=== PATIENT | male | born 1970 | race African-American/Black ===

== ENCOUNTER 2019-10-12 23:18 | Emergency (ER) | payer SELFPAY ==
[~2019-10-12] VITALS: Ht 170.2 cm; Wt 97.7 kg
[2019-10-13 00:21] LABS: HEMATOCRIT 34.4 % (39.0-50.0); HEMOGLOBIN 11.6 g/dl (14.0-18.0); IMMATURE GRANULOCYTES 0.6 % (0.0-5.0); MEAN CELL VOLUME 90.8 fL CALC (80.0-100.0); MEAN CORPUSCULAR HGB 30.6 pG CALC (26.0-32.0); MEAN CORPUSCULAR HGB CONC 33.7 g/dL CAL (32.0-36.0); NEUT# 5.48 thou/uL (1.82-7.42); RED BLOOD COUNT 3.79 mill/uL (4.70-6.10); RED CELL DISTRI WIDTH 12.5 % (11.5-15.5)
[2019-10-13 00:32] LABS: ALBUMIN 3.8 g/dL (3.2-5.0); ALKALINE PHOSPHATASE 83 u/l (38-126); ANION GAP 12 (6-22 (CALC)); BILIRUBIN, TOTAL 0.6 mg/dL (0.0-1.4); BUN 20 mg/dL (9-20); BUN/CREATININE RATIO 15 (12-20 (CALC)); CARBON DIOXIDE 25 mmol/l (22-30); CHLORIDE 99 mmol/l (95-108); CREATININE 1.4 mg/dL (0.7-1.3); GFR 54 ML/MIN (>=60 (CALC)); GFR FOR AFR.AMER. > 60 ML/MIN (>=60 (CALC)); POTASSIUM 3.7 mmol/l (3.5-5.1); SGOT/AST 29 u/l (17-59); SODIUM 133 mmol/l (137-146); TOTAL PROTEIN 7.8 g/dL (6.3-8.2)
[2019-10-13 01:40] VITALS: BP 146/82
[2019-10-13] MEDS ORDERED: AMLODIPINE BESY10 MG PO (01:57)
--- NOTE | 2019-10-15 17:36 | NUR ---
Notified patient of + Covid results. Patient denies fever or dyspnea. Advised patient to quarantine until the [facility] contacts him with instructions. Advised patient to retuen to ED with difficulty breathing or other urgent needs. Patient verbalized understanding.
== END 2019-10-13 01:40 | disposition home or self-care (01) | DRG 179 ==
LOC: ED 23:18
PROVIDERS: Family Medicine
DX: U07.1 COVID-19 (principal); E11.9 Type 2 diabetes mellitus without complications; I10 Essential (primary) hypertension

== ENCOUNTER 2020-06-15 08:52 | Emergency (ER) | payer BC ==
[~2020-06-15] VITALS: Ht 170.2 cm; Wt 100.0 kg
[~2020-06-15 08:52] MED LIST: AMLODIPINE BESY10 MG PO
[2020-06-15] MEDS ORDERED: FLOXIN OTIC0.3 % AS (10:03)
[2020-06-15] MEDS ORDERED: AMOX/K CLAV875 M1 PO (10:03)
[2020-06-15] MEDS ORDERED: MED FOR DIABETES (10:08)
[2020-06-15 10:20] VITALS: BP 143/81
== END 2020-06-15 10:20 | disposition home or self-care (01) | DRG 153 ==
LOC: ED 08:52
DX: H66.92 Otitis media, unspecified, left ear (principal); H60.92 Unspecified otitis externa, left ear; I10 Essential (primary) hypertension; E11.9 Type 2 diabetes mellitus without complications

== ENCOUNTER 2022-12-01 02:10 | Emergency (ER) | payer SELFPAY ==
[~2022-12-01] VITALS: Ht 170.2 cm; Wt 99.7 kg
[2022-12-01] VITALS (10 sets, daily range): BP systolic 178–234; BP diastolic 84–120
[~2022-12-01 02:10] MED LIST changes: +AMOX/K CLAV875 M1 PO; +FLOXIN OTIC0.3 % AS; +MED FOR DIABETES; +METFORMIN500 M1 OR; +ULTRAM50 MG OR
[2022-12-01 03:02] LABS: BASO% 0.4 % (0-3); EOS% 3.7 % (0-8); IMMATURE GRANULOCYTES 0.1 % (0.0-5.0); LYMPH% 16.5 % (15-41); MEAN CELL VOLUME 94.8 fL CALC (80.0-100.0); MEAN CORPUSCULAR HGB 30.6 pG CALC (26.0-32.0); MEAN CORPUSCULAR HGB CONC 32.2 g/dL CAL (32.0-36.0); MONO% 6.9 % (2-13); NEUT# 6.74 thou/uL (1.82-7.42); NEUT% 72.4 % (42-76); RED BLOOD COUNT 2.88 mill/uL (4.70-6.10); RED CELL DISTRI WIDTH 12.6 % (11.5-15.5)
[2022-12-01 03:09] LABS: HEMATOCRIT 27.3 % (39.0-50.0); HEMOGLOBIN 8.8 g/dl (14.0-18.0)
[2022-12-01 03:11] LABS: ALBUMIN 3.3 g/dL (3.2-5.0); BILIRUBIN, TOTAL 0.7 mg/dL (0.2-1.3); POTASSIUM 3.8 mmol/l (3.5-5.1); TOTAL PROTEIN 7.1 g/dL (6.3-8.2)
[2022-12-01 03:21] LABS: CREATININE 2.4 mg/dL (0.7-1.3)
[2022-12-01 04:54] LABS: URINE BILIRUBIN - DIPSTICK Negative (NEGATIVE); URINE BLOOD DIPSTICK Moderate (NEGATIVE); URINE COLOR Yellow; URINE GLUCOSE - DIPSTICK Negative (NEGATIVE); URINE KETONE Negative (NEGATIVE); URINE LEUK ESTERASE Negative (NEGATIVE); URINE NITRITE - DIPSTICK Negative (Negative); URINE PROTEIN - DIPSTICK >=300 mg/dL (NEG-TRACE); URINE SPECIFIC GRAVITY 1.025; URINE UROBILINOGEN - DIPSTICK 0.2 E.U./dL (0.2)
[2022-12-01 05:10] LABS: URINE SQUAMOUS EPITHELIAL CELL FEW EPI/hpf (0-FEW); URINE WBC 0-2 WBC/hpf (0-5); URINE YEAST FEW hpf
[2022-12-01] MEDS ORDERED: MAXZIDE-25MG1 COMBO PO (05:17)
[2022-12-01] MEDS ORDERED: TOPROL XL50 MG PO (05:17)
[2022-12-01] MEDS ORDERED: AMLODIPINE BESYL5 MG PO (05:17)
[2022-12-01] MEDS ORDERED: CORTISPORIN OTI10 ML AD (05:17)
== END 2022-12-01 05:27 | disposition home or self-care (01) | DRG 684 ==
LOC: ED 02:10
PROVIDERS: Family Medicine
DX: I12.9 Hypertensive chronic kidney disease with stage 1 through stage 4 chronic kidney disease, or unspecified chronic kidney disease (principal); E11.22 Type 2 diabetes mellitus with diabetic chronic kidney disease; N18.30 Chronic kidney disease, stage 3 unspecified; H60.91 Unspecified otitis externa, right ear; T46.5X6A Underdosing of other antihypertensive drugs, initial encounter; Z91.128 Patient's intentional underdosing of medication regimen for other reason; Z79.84 Long term (current) use of oral hypoglycemic drugs

== ENCOUNTER 2024-07-17 22:36 | Emergency (ER) | payer OTHER ==
[~2024-07-17] VITALS: Ht 170.2 cm; Wt 96.0 kg
[~2024-07-17 22:36] MED LIST changes: +AMLODIPINE BESYL5 MG PO; +CORTISPORIN OTI10 ML AD; +MAXZIDE-25MG1 COMBO PO; +TOPROL XL50 MG PO
[2024-07-17] MEDS ORDERED: TETRACAINE HCL 0.5 %/4 ML SOL OU ONE (22:50)
[2024-07-17] MEDS ORDERED: FLUORESCEIN SODIUM 1 MG EA OU ONE (22:50)
[2024-07-17] MEDS ORDERED: GENTAMICIN SULFATE (OPHTH) 5 ML BTL OS ONE (23:00)
[2024-07-17] MEDS ORDERED: CARDIZEM CD240 MG PO (23:00)
[2024-07-17] MEDS ORDERED: GENTAMICIN0.3 % OS (23:00)
[2024-07-17 23:01] VITALS: BP 210/124
== END 2024-07-17 23:23 | disposition home or self-care (01) | DRG 125 ==
LOC: ED 22:36
DX: S05.02XA Injury of conjunctiva and corneal abrasion without foreign body, left eye, initial encounter (principal); I10 Essential (primary) hypertension; E11.9 Type 2 diabetes mellitus without complications; W44.8XXA Other foreign body entering into or through a natural orifice, initial encounter; Z79.84 Long term (current) use of oral hypoglycemic drugs